=== PATIENT | male | born 1985 | race Caucasian/White ===

== ENCOUNTER 2016-08-02 03:28 | Emergency (ER) | payer SELFPAY ==
[2015-02-28 03:26] VITALS: BP 113/72
[2016-08-02] MEDS ORDERED: CYCL10TA2 PO (06:16)
[2016-08-02] MEDS ORDERED: NAPR500T PO (06:16)
== END 2016-08-02 04:31 | disposition left against medical advice (07) ==
LOC: ER 03:30
DX: M54.5 Low back pain (principal); Z53.21 Procedure and treatment not carried out due to patient leaving prior to being seen by health care provider

== ENCOUNTER 2016-08-02 05:26 | Emergency (ER) | payer SELFPAY ==
[~2016-08-02] VITALS: Ht 180.3 cm; Wt 74.8 kg
[2016-08-02] MEDS ORDERED: NAPR500T PO (06:16)
[2016-08-02] MEDS ORDERED: CYCL10TA2 PO (06:16)
--- NOTE | 2016-08-02 06:17 | PHYS DOC ---
Past Medical History Past Medical History: Other Additional Past Medical Histor: pyloric stenosis Past Surgical History: Tonsillectomy, Other Additional Past Surgical Histo: abd surgery Alcohol Use: None Drug Use: None Adult General Chief Complaint Chief Complaint: LOWER BACK PAIN OR INJURY HPI HPI Patient is a 31 year old male who presents with complaint of back pain. The patient states that he fell down approximately 4 stairs last night. Patient states he initially had minor soreness in his low back, however he awoke this morning with moderate to severe pain in the left lower back. Patient states that the pain is localized to his low back and does not travel down his leg. Patient states that the pain worsens with movement. Patient rates pain currently as 7 out of 10. Patient denies any associated loss of bowel or bladder control, saddle anesthesia, or foot drop. Patient has not taken any medications at this time to help with symptoms. Review of Systems Review of Systems Constitutional: Denies fever or chills [] Eyes: Denies change in visual acuity, redness, or eye pain [] HENT: Denies nasal congestion or sore throat [] Respiratory: Denies cough or shortness of breath [] Cardiovascular: Denies chest pain or edema [] GI: Denies abdominal pain, nausea, vomiting, bloody stools or diarrhea [] : Denies dysuria or hematuria [] Musculoskeletal: Back pain [] Integument: Denies rash or skin lesions [] Neurologic: Denies headache, focal weakness or sensory changes [] Endocrine: Denies polyuria or polydipsia [] Current Medications Current Medications Current Medications Medications (Trade) Dose Ordered Sig/Maday Start Time Stop Time Status Last Admin Dose Admin Cyclobenzaprine HCl (Flexeril) 10 mg 1X ONCE 08/02/16 06:15 08/02/16 06:16 UNV Naproxen (Naprosyn) 500 mg 1X STAT 08/02/16 06:11 08/02/16 06:12 UNV Allergies Allergies Allergies Coded Allergies Type Severity Reaction Last Updated Verified Penicillins Allergy Intermediate swelling 08/02/13 Yes doxycycline Allergy Intermediate "swelling" 02/28/15 No Physical Exam Physical Exam Constitutional: Alert, afebrile, no acute distress. [] HENT: Normocephalic, atraumatic, bilateral external ears normal, oropharynx moist, no oral exudates, nose normal. [] Neck: Normal range of motion, no tenderness, supple, no stridor. [] Cardiovascular:Heart rate regular rhythm, no murmur [] Lungs & Thorax: Bilateral breath sounds clear to auscultation [] Abdomen: Bowel sounds normal, soft, no tenderness, no masses, no pulsatile masses. [] Skin: Warm, dry, no erythema, no rash. [] Back: No midline tenderness, left paraspinous muscle tenderness in the lower lumbar region, negative straight leg test. [] Extremities: No tenderness, no cyanosis, no clubbing, ROM intact, no edema. [] Neurologic: Alert and oriented X 3, normal motor function, normal sensory function, no focal deficits noted. [] Current Patient Data Vital Signs Vital Signs Date Time Temp Pulse Resp B/P Pulse Ox O2 Delivery O2 Flow Rate FiO2 08/02/16 05:41 98.3 97 16 121/78 100 Room Air 98.3 EKG EKG Not performed [] Radiology/Procedures Radiology/Procedures Not performed [] Course & Med Decision Making Course & Med Decision Making Pertinent Labs and Imaging studies reviewed. (See chart for details) Patient has no midline tenderness. No x-ray imaging indicated at this time. The patient was started on Flexeril and Naprosyn. We'll continue on one week of Flexeril and Naprosyn with recommended follow-up in one week if symptoms not improving. Advised return to emergency department for any worsening symptoms. Patient voiced understanding and in agreement with treatment plan. Dragon Disclaimer Dragon Disclaimer This electronic medical record was generated, in whole or in part, using a voice recognition dictation system. Departure Departure Impression: Primary Impression: Low back strain Disposition: 01 HOME, SELF-CARE Condition: STABLE Referrals: NO PCP (PCP) Patient Instructions: Back Injury Prevention, Back Pain, Adult Additional Instructions: Follow-up with your primary doctor in 1 week if symptoms do not improve. Return to the emergency department for any worsening symptoms. Scripts Cyclobenzaprine Hcl 10 Mg Tablet1 Tab PO TID #30 TAB Prov:MADHURI HOBSON MD 08/02/16 Naproxen (Naprosyn)500 Mg [id number] Mg PO BID #20 TAB Prov:MADHURI HOBSON MD 08/02/16 Problem Qualifiers Primary Impression: Low back strain Encounter type: initial encounter Qualified Code: S39.012A - Strain of muscle, fascia and tendon of lower back, initial encounter MADHURI HOBSON MD Aug 02, 2016 06:16
[2016-08-02 06:26] VITALS: BP 131/68
[2016-08-02] MEDS ORDERED: CYCLOBENZAPRINE 10 MG TABLET. PO ONE (06:30)
[2016-08-02] MEDS ORDERED: NAPROXEN 500 MG TABLET PO ONE (06:30)
== END 2016-08-02 06:29 | disposition home or self-care (01) ==
LOC: ER 05:26
DX: S39.012A Strain of muscle, fascia and tendon of lower back, initial encounter (principal); Z88.1 Allergy status to other antibiotic agents; Z88.0 Allergy status to penicillin; W10.9XXA Fall (on) (from) unspecified stairs and steps, initial encounter; Y93.89 Activity, other specified; Y92.89 Other specified places as the place of occurrence of the external cause; Y99.8 Other external cause status
CPT/HCPCS: 99283